=== PATIENT | male | born 1970 | race Caucasian/White ===

== ENCOUNTER 2021-07-15 09:52 | Emergency (ER) | payer BC ==
[~2021-07-15 09:52] MED LIST: FELDENE20 MG PO; FLEXERIL 10 MG10 MG PO; PREDNISONE 50 M50 MG PO; Voltaren Gel 1 % TOP
[2021-07-15 10:21] LABS: HEMOGLOBIN 17.1 gm/dl (14.0-17.5); RED BLOOD COUNT 5.04 M/UL (4.20-5.50); WHITE BLOOD COUNT 6.9 K/UL (4.5-11.0)
[2021-07-15 10:51] LABS: BUN/CREATININE RATIO 14 (0-10)
[2021-07-15] MEDS ORDERED: TORADOL 10 MG T10 MG PO (11:41)
[2021-07-15] MEDS ORDERED: FLOMAX0.4 MG PO (11:41)
[2021-07-15] MEDS ORDERED: HYDROCODON-ACE1 EAC4 PO (12:03)
== END 2021-07-15 12:53 | disposition home or self-care (01) ==
LOC: ER1 09:52
PROVIDERS: Physician Assistant
DX: N13.2 Hydronephrosis with renal and ureteral calculous obstruction (principal); I10 Essential (primary) hypertension
CPT/HCPCS: 80053; 81001; 85025; 96374; 96375; 99284; J1885; J2270; J2405

== ENCOUNTER → 2021-09-13 | Outpatient (CLI) | payer BC ==
[~2021-09-13] MED LIST changes: +FLOMAX0.4 MG PO; +HYDROCODON-ACE1 EAC4 PO; +TORADOL 10 MG T10 MG PO
== END ==
LOC: KOH-I 11:00
DX: R10.31 Right lower quadrant pain (principal)
CPT/HCPCS: 74176

== ENCOUNTER → 2022-03-23 | Outpatient (CLI) | payer BC | LOC: KOH-I 11:30 | DX: E07.89 Other specified disorders of thyroid (principal) | CPT/HCPCS: 76536 ==